=== PATIENT | female | born 1980 | race Caucasian/White ===

== ENCOUNTER → 2016-12-06 | Outpatient (REF) | payer OTHER ==
[~2016-12-06] MED LIST: BENA25CA2 PO; NORCOTAB PO; SERT50TA PO
== END ==
LOC: M SFHCPLAZ 10:00
PROVIDERS: ATTEND Family Medicine
DX: L72.0 Epidermal cyst (principal)

== ENCOUNTER → 2017-01-03 | Outpatient (REF) | payer OTHER | LOC: M LAB REF 10:22 | PROVIDERS: ATTEND Physician Assistant Medical | DX: N39.0 Urinary tract infection, site not specified (principal) ==

== ENCOUNTER → 2017-12-20 | Outpatient (REF) | payer OTHER ==
[2017-12-20 21:18] LABS: APPEARANCE, URINE CLEAR (CLEAR); BACTERIA, URINE AUTO NEGATIVE (NEGATIVE); BILIRUBIN, URINE AUTO NEGATIVE (NEGATIVE); BLOOD, URINE BLOOD NEGATIVE (NEGATIVE); COLOR, URINE YELLOW (YELLOW); GLUCOSE, URINE (UA) AUTO NEGATIVE (NEGATIVE); KETONE, URINE AUTO NEGATIVE (NEGATIVE); LEUKOCYTE ESTERASE, URINE AUTO NEGATIVE (NEGATIVE); NITRITE, URINE AUTO NEGATIVE (NEGATIVE); PROTEIN, URINE AUTO NEGATIVE (NEGATIVE); RBC, URINE AUTO 0 /HPF (0-3); SPECIFIC GRAVITY URINE AUTO 1.015 (1.002-1.035); SQUAMOUS EPITHELIAL CELL UR AU 1 /HPF (0-6); WBC, URINE AUTO 9 /HPF (0-3)
== END ==
LOC: M LAB REF 09:25
DX: R30.0 Dysuria (principal)

== ENCOUNTER 2018-08-05 17:10 | Emergency (ER) | payer OTHER ==
[~2018-08-05] VITALS: Ht 160 cm; Wt 81.8 kg
[2018-08-05] MEDS ORDERED: BACLOFEN 10 MG TAB PO ONE (18:00)
--- NOTE | 2018-08-05 18:35 | REPVR ---
EXAM: CT Head Without Contrast EXAM DATE/TIME: 08/05/2018 6:12 PM CLINICAL HISTORY: 38 years old, female; Injury or trauma; Fall; Initial encounter; Concussion / head injury; Consciousness not specified; Additional info: Fell/hit head TECHNIQUE: Axial computed tomography images of the head/brain without contrast. All CT scans at this facility use at least one of these dose optimization techniques: automated exposure control; mA and/or kV adjustment per patient size (includes targeted exams where dose is matched to clinical indication); or iterative reconstruction. COMPARISON: No relevant prior studies available. FINDINGS: Brain: Unremarkable for age. No hemorrhage. No significant white matter disease. No edema. Ventricles: Normal. No ventriculomegaly. Bones/joints: Normal. No acute fracture. Sinuses: Normal as visualized. No acute sinusitis. Mastoid air cells: Normal as visualized. No mastoid effusion. Soft tissues: Normal. IMPRESSION: No acute intracranial abnormality seen. Electronically signed by: Bozena Mclaughlin On 08/05/2018 18:35:30 PM
--- NOTE | 2018-08-05 18:39 | REPVR ---
EXAM: CT Cervical Spine Without Contrast EXAM DATE/TIME: 08/05/2018 6:12 PM CLINICAL HISTORY: 38 years old, female; Injury or trauma; Fall; Initial encounter; Concussion /head injury; Additional info: Fell/hit head TECHNIQUE: Axial computed tomography images of the cervical spine without intravenous contrast. All CT scans at this facility use at least one of these dose optimization techniques: automated exposure control; mA and/or kV adjustment per patient size (includes targeted exams where dose is matched to clinical indication); or iterative reconstruction. Coronal and sagittal reformatted images were created and reviewed. COMPARISON: No relevant prior studies available. FINDINGS: Vertebrae: Straightening of the normal cervical lordosis may be positional or due to muscle spasm. No acute fracture seen. A focal, sclerotic lesion in the C2 body may represent a bone island. Discs/Spinal canal/Neural foramina: Mild to moderate disc height loss and spondylosis with uncovertebral arthropathy at C4-5 and C5-6. No high-grade stenoses. Soft tissues: Unremarkable. Lungs: Lung apices are normal. Other findings: Retention cysts or polyps in the right maxillary sinus. The lingual tonsils are enlarged. IMPRESSION: No cervical spine fracture seen. Electronically signed by: Bozena Mclaughlin On 08/05/2018 18:39:29 PM
[2018-08-05] MEDS ORDERED: NORCOTAB PO (18:49)
[2018-08-05] MEDS ORDERED: BACL10TA2 PO (18:49)
[2018-08-05 18:59] VITALS: BP 141/68
== END 2018-08-05 19:00 | disposition home or self-care (01) ==
LOC: M ED 17:10
DX: M50.30 Other cervical disc degeneration, unspecified cervical region (principal); M47.812 Spondylosis without myelopathy or radiculopathy, cervical region; Z91.81 History of falling; Z79.899 Other long term (current) drug therapy

== ENCOUNTER → 2019-01-19 | Outpatient (CLI) | payer OTHER ==
[~2019-01-19] MED LIST changes: +BACL10TA2 PO; +HYDR-3715 PO; -NORCOTAB PO; +SERT-141 PO; -SERT50TA PO; +WELLTAB38 PO; +XANA0.25 PO
[2019-01-19 13:20] LABS: BASO % 0.5 % (0.0-1.0); EOS # 0.1 10^3/uL (0.0-0.50); HEMATOCRIT 41.6 % (36.0-47.0); LYMPH # 1.9 10^3/uL (1.5-4.5); LYMPH % 30.8 % (24.0-44.0); MEAN CORPUSCULAR HEMOGLOBIN 32.7 pg (27.0-33.0); MEAN CORPUSCULAR HGB CONC 33.7 g/dl (32.0-36.5); MEAN CORPUSCULAR VOLUME 97.2 fl (80.0-96.0); MONO # 0.4 10^3/uL (0.0-0.8); MONO % 6.4 % (0.0-5.0); NEUTROPHILS # 3.8 10^3/uL (1.8-7.7); PLATELET COUNT, AUTOMATED 229 10^3/uL (150-450); RED BLOOD COUNT 4.28 10^6/uL (4.00-5.40); WHITE BLOOD COUNT 6.2 10^3/uL (4.0-10.0)
[2019-01-19 13:21] LABS: HCG, SERUM QUALITATIVE NEGATIVE (NEGATIVE)
[2019-01-19 13:26] LABS: PARTIAL THROMBOPLASTIN TIME 28.3 SECONDS (25.4-37.6); PROTHROMBIN TIME 13.3 SECONDS (12.1-14.4)
[2019-01-19 13:45] LABS: ALBUMIN 3.6 GM/DL (3.2-5.2); ALT/SGPT 21 U/L (12-78); BILIRUBIN,TOTAL 0.9 MG/DL (0.2-1.0); BLOOD UREA NITROGEN 10 MG/DL (7-18); CALCIUM LEVEL 8.8 MG/DL (8.5-10.1); CARBON DIOXIDE LEVEL 29 MEQ/L (21-32); CHLORIDE LEVEL 104 MEQ/L (98-107); CREATININE FOR GFR 0.65 MG/DL (0.55-1.30); GLOMERULAR FILTRATION RATE > 60.0 (>60); GLUCOSE, FASTING 89 MG/DL (70-100); POTASSIUM SERUM 4.4 MEQ/L (3.5-5.1); SODIUM LEVEL 139 MEQ/L (136-145); TOTAL PROTEIN 6.7 GM/DL (6.4-8.2)
== END ==
LOC: M SMT 09:16
PROVIDERS: ATTEND Physician Assistant
DX: Z01.818 Encounter for other preprocedural examination (principal)

== ENCOUNTER 2019-01-26 06:06 | Observation (INO) | payer OTHER ==
[~2019-01-26] VITALS: Ht 160 cm; Wt 83.9 kg
[2019-01-26] MEDS ORDERED: LIDOCAINE 2% INJ 100 MG/5 ML SDV (FOR ANES.) As Ordered ONE (06:54)
[2019-01-26] MEDS ORDERED: ROCURONIUM BROMIDE 50 MG/5 ML VIAL As Ordered ONE ×2 (06:54→10:06)
[2019-01-26] MEDS ORDERED: PROPOFOL 200 MG/20 ML VIAL As Ordered ONE (06:54)
[2019-01-26] MEDS ORDERED: KETOROLAC 60 MG/2 ML VIAL (J1885) As Ordered ONE (06:57)
[2019-01-26] MEDS ORDERED: dexameTHASONE 4 MG/ML 1ML VIAL (J1100) As Ordered ONE (06:57)
[2019-01-26] MEDS ORDERED: ONDANSETRON 4MG/2ML VIAL (J2405) As Ordered ONE (06:57)
[2019-01-26] MEDS ORDERED: fentaNYL 100 MCG/2 ML INJECTION (J3010) As Ordered ONE (06:59)
[2019-01-26] MEDS ORDERED: HEPARIN SOD (PORCINE) 5000 UNITS/ML VIAL SQ ONE (07:00)
[2019-01-26] MEDS ORDERED: ceFAZolin SOD 1 GM in D5W MINI-BAG PLUS 50 ML IV ONE (07:00)
[2019-01-26] MEDS ORDERED: MIDAZOLAM INJ 2 MG/2 ML VIAL (J2250) As Ordered ONE (07:00)
[2019-01-26] MEDS ORDERED: LR 1,000 ML IV SCH ×2 (07:00→11:30)
[2019-01-26] MEDS ORDERED: BUPIVACAINE LIPOSOME/PF 1.3% 20ML VIAL (13.3MG/ML)(EXPAREL)(C9290 PER1MG) As Ordered ONE (07:15)
[2019-01-26] MEDS ORDERED: BACITRACIN PWD 50,000 UNITS VIAL As Ordered ONE (07:16)
[2019-01-26] MEDS ORDERED: HYDROmorphone HCL 2 MG/ML 1ML VIAL (J1170) As Ordered ONE (07:47)
[2019-01-26] MEDS ORDERED: METOCLOPRAMIDE INJ 10MG/2ML VIAL (J2765) As Ordered ONE (08:08)
[2019-01-26] MEDS ORDERED: FLUCONAZOLE 200 MG in APPROPRIATE DILUENT 1 EA IV ONE (08:30)
[2019-01-26] MEDS ORDERED: SUGAMMADEX SODIUM 500 MG/5 ML VIAL (BRIDION) As Ordered ONE (08:55)
--- NOTE | 2019-01-26 11:19 | POST-OPPD ---
Postoperative Procedure Note Date Of Procedure: Jan 26, 2019 PREOPERATIVE DIAGNOSIS: Panniculitis POSTOPERATIVE DIAGNOSIS: same FINDINGS: Large pannus PROCEDURE: Extended panniculectomy with inferior rectus muscle plication. SURGEON: Dr Pelayo ANESTHESIA: General SPECIMENS: Pannus ESTIMATED BLOOD LOSS: 150 cc REPLACED: none DRAINS: 10 mm DOMINGO drains x 2 COMPLICATIONS: none POSTOPERATIVE CONDITION: stable Dict: [id number] JILLIAN PELAYO DO Jan 26, 2019 11:19
[2019-01-26] MEDS ORDERED: ONDANSETRON 4MG/2ML VIAL (J2405) IV PRN (11:30)
[2019-01-26] MEDS ORDERED: METOCLOPRAMIDE INJ 10MG/2ML VIAL (J2765) IV PRN (11:30)
[2019-01-26] MEDS ORDERED: fentaNYL 100 MCG/2 ML INJECTION (J3010) IV PRN (11:30)
[2019-01-26] MEDS: PERCOCET 5MG/325MG TAB PO PRN ×2 (11:35→12:10)
[2019-01-26] MEDS: LR 1,000 ML IV SCH (15:00)
[2019-01-26 15:01] VITALS: BP 116/65
[2019-01-26] MEDS: ceFAZolin SOD 1 GM in D5W MINI-BAG PLUS 50 ML IV SCH ×2 (16:00→16:45)
[2019-01-26 16:16] VITALS: BP 112/61
[2019-01-26] MEDS: NORCO, ANEXSIA 5/325MG TABLET (HYDROcodone/ACETAMINOPHEN) PO PRN (16:44)
[2019-01-26] MEDS: MORPHINE 4 MG/ML 1ML VIAL/SYRINGE (J2270) IV PRN (19:25)
[2019-01-26 22:00] VITALS: BP 103/59
--- NOTE | 2019-01-26 23:33 | RO ---
DATE OF PROCEDURE: 01/26/2019 PREOPERATIVE DIAGNOSIS: Panniculitis. POSTOPERATIVE DIAGNOSIS: Panniculitis. PROCEDURE: Extended panniculectomy with inferior rectus muscle plication. ATTENDING SURGEON: Keren Carroll DO ANESTHESIA: General. BLOOD LOSS: 150 mL. Two 10 mm Manolo-Angeles drains left in place. DESCRIPTION OF PROCEDURE: This is a 38-year-old female who had gastric banding, who lost more than 80 pounds. She has significant excess of the pannus tissue, which gets frequent infections. As a matter of fact, today she has still residual infection with a yeast infection in the fold. Patient is a good candidate for extended panniculectomy, and she is scheduled to have one done. All the risks and benefits and alternatives discussed with the patient, and she is ready to proceed. On the day of surgery, she was marked in the upright position in the preoperative holding area and, like I said, mild irritation and intertrigo into the lower fold is noted. No open skin. Then, patient was brought into the operating room and placed in supine position. Preoperative antibiotics were given. Sequentials were placed on the lower calves. 5000 heparin was given to the patient subcu, and then general anesthesia was induced. The Rivera was introduced into the bladder without any difficulties, and then she was prepped and draped in the usual sterile fashion. We marked our incision at 7 cm above the vaginal crease. The lower abdominal incision was carried out using #10 blade, and then sharp dissection was carried out using electrocautery until the rectus fascia was identified. The flap was then raised superiorly until the umbilical stalk was encountered, and then a rhomboid incision was made around the umbilicus. We continued raising the flaps superiorly. There was a port and wires and tubing from the band that were identified in the right upper quadrant and extending medially, which will prevent full plication and the superior rectus muscle. That part of rectus has minimal laxity as of note. Lower abdominal part has moderate laxity of rectus muscle, so that area was plicated four fingerbreadths with interrupted #0 Vicryl sutures and #1 looped PDS. Then, patient was placed in reflex position, and excess skin over the pannus was measured and resected, totaling 2523 grams. Hemostasis obtained using electrocautery, and then we started our closure along the inferior flap using interrupted #0 Vicryl sutures and #3-0 Monocryl sutures and #3-0 V-Loc suture. 10 mm Manolo-Angeles drains were placed through the lateral portion of horizontal incision. The rhomboid opening for the umbilical stalk was made using #10 blade, and then the umbilicus was brought into view. It was in good viable condition, and then it was sutured in place with layers with interrupted #3-0 Monocryl and #5-0 plain sutures. Exparel 15 cc used for pain control, used intramuscular into rectus muscle and incision. Then, Prineo dressing was applied for the inferior incision. For the umbilical incision, it was Xeroform and a bulky dressing, and then compressive garment was placed. Patient was transferred to recovery room in stable condition. MELONIE
[2019-01-27] MEDS: ceFAZolin SOD 1 GM in D5W MINI-BAG PLUS 50 ML IV SCH ×2 (00:02→08:55)
[2019-01-27] MEDS: MORPHINE 4 MG/ML 1ML VIAL/SYRINGE (J2270) IV PRN (00:07)
[2019-01-27 02:00] VITALS: BP 114/49
[2019-01-27] MEDS: LR 1,000 ML IV SCH (05:01)
[2019-01-27 06:00] VITALS: BP 111/49
--- NOTE | 2019-01-27 08:52 | IPNPDOC ---
Subjective General Date/Time Seen The patient was seen on 01/27/19 at 08:15. Subject Chief Complaint/History The patient is a 38-year-old female admitted with a reason for visit of Panniculitis. S/p extended panniculectomy POD 1. Doing well. Pain mild, controlled. Ambulating, urinating. Tolerating diet. Current Medications Current Medications Current Medications Acetaminophen/ Hydrocodone Bitart ([place], Anexsia 5/325) 1 tab Q4HP PRN PO MILD/MODERATE PAIN (PS 1-7) Last administered on 01/26/19at 16:44; Start 01/26/19 at 11:30 Cefazolin Sodium 1 gm/Dextrose 50 ml @ 100 mls/hr Q8H IV Last administered on 01/27/19at 00:02; Start 01/26/19 at 16:00 Fentanyl Citrate (Sublimaze) 25 mcg Q5MP PRN IV MODERATE PAIN (PS 4-7); Start 01/26/19 at 11:30; Stop 01/26/19 at 12:30; Status DC Fluconazole 200 mg/IV Miscellaneous Supplies 100 ml @ 100 mls/hr DAILY IV ; Start 01/27/19 at 09:00 Lactated Ringer's 1,000 ml @ 50 mls/hr Q20H IV Last administered on 01/26/19at 07:02; Start 01/26/19 at 07:00; Stop 01/26/19 at 11:19; Status DC Lactated Ringer's 1,000 ml @ 75 mls/hr [id number] IV Last administered on 01/27/19at 05:01; Start 01/26/19 at 11:30 Lactated Ringer's 1,000 ml @ 100 mls/hr Q10H IV ; Start 01/26/19 at 11:30; Stop 01/26/19 at 12:30; Status DC Metoclopramide HCl (REGLAN INJection) 10 mg Q6HP PRN IV NAUSEA OR VOMITING; Start 01/26/19 at 11:30; Stop 01/26/19 at 12:30; Status DC Morphine Sulfate (Morphine Sulfate Inj) 4 mg Q4HP PRN IV SEVERE PAIN (PS 8-10) Last administered on 01/27/19at 00:07; Start 01/26/19 at 11:30 Ondansetron HCl (ZOFRAN INJection) 4 mg Q4HP PRN IV NAUSEA OR VOMITING; Start 01/26/19 at 11:30; Stop 01/26/19 at 12:30; Status DC Oxycodone/ Acetaminophen (Percocet 5mg/ 325mg Tablet) 1 tab ASDIRECTED PRN PO MILD/MODERATE PAIN (PS 1-7) Last administered on 01/26/19at 12:10; Start 01/26/19 at 11:30; Stop 01/26/19 at 12:15; Status DC Allergies Coded Allergies: adhesive (Verified Allergy, Intermediate, rash, 01/15/19) Uncoded Allergies: STERISTRIPS (Allergy, Intermediate, rash, 01/15/19) Objective Physical Examination Examination GENERAL APPEARANCE:Patient seen, laying in bed, awake, alert, and oriented. Comfortable, in no acute distress. SKIN: Warm and moist. Abdominal flaps viable, umbilicus viable. No ecchymosis. Incisions intact. DOMINGO drains with minimal output. HEENT: Normocephalic, atraumatic. [place] palpebral conjunctiva, anicteric sclerae. Lips and mucosa appear moist. NECK: Supple, no thyromegaly. No obvious jugular venous distention. LUNGS: Clear to auscultation bilaterally. No wheezing appreciated. HEART: No chest wall abnormalities. Regular rate and rhythm with no murmurs appreciated. ABDOMEN: Abdomen is Soft NT/ND. Vital Signs Vital Signs Date Time Temp Pulse Resp B/P (MAP) Pulse Ox O2 Delivery O2 Flow Rate FiO2 01/27/19 06:00 98.5 66 18 111/49 (69) 99 01/26/19 10:57 10 I&Os I&O- Last 24 Hours up to 6 AM 01/27/19 06:00 Intake Total 4355 ml Output Total 730 ml Balance 3625 ml Impression S/p extended panniculectomy Doing well Pain controlled. Stable for discharge later today. Continue with DOMINGO monitoring at home. Keep binder on. Instructions given F/up plastic surgery Friday. Plan / VTE VTE Prophylaxis Ordered?: Yes JILLIAN PELAYO DO Jan 27, 2019 08:52
[2019-01-27] MEDS: NORCO, ANEXSIA 5/325MG TABLET (HYDROcodone/ACETAMINOPHEN) PO PRN (08:56)
[2019-01-27] MEDS ORDERED: HYDR-4571 PO (08:59)
[2019-01-27] MEDS ORDERED: FLUCONAZOLE 200 MG in APPROPRIATE DILUENT 1 EA IV SCH (09:00)
[2019-01-27 10:00] VITALS: BP 109/70
== END 2019-01-27 13:15 | disposition home or self-care (01) ==
LOC: M SDC 06:06 → M MS5PR 14:40
PROVIDERS: ADMIT Plastic Surgery Surgery of the Hand; ATTEND Plastic Surgery Surgery of the Hand
DX: M79.3 Panniculitis, unspecified (principal); Z98.84 Bariatric surgery status; E28.2 Polycystic ovarian syndrome; J30.9 Allergic rhinitis, unspecified; D64.9 Anemia, unspecified; F41.1 Generalized anxiety disorder; B37.89 Other sites of candidiasis; G43.909 Migraine, unspecified, not intractable, without status migrainosus; Z79.899 Other long term (current) drug therapy; Z91.048 Other nonmedicinal substance allergy status
CPT/HCPCS: 15830; 15847; 88302; 96365; 96366; 96368; 96375; 96376; C9290; J0690; J1100; J1170; J1885; J2250; J2270; J2405; J2765; J3010

== ENCOUNTER 2019-02-03 11:37 | Emergency (ER) | payer OTHER ==
[~2019-02-03] VITALS: Ht 160 cm; Wt 84.1 kg
[~2019-02-03 11:37] MED LIST changes: +HYDR-4571 PO
[2019-02-03 14:15] LABS: BASO % 0.6 % (0.0-1.0); EOS # 0.2 10^3/uL (0.0-0.50); EOS % 2.3 % (0.0-3.0); HEMATOCRIT 39.7 % (36.0-47.0); HEMOGLOBIN 13.6 g/dl (12.0-15.5); LYMPH # 1.9 10^3/uL (1.5-4.5); LYMPH % 25.9 % (24.0-44.0); MEAN CORPUSCULAR HEMOGLOBIN 33.3 pg (27.0-33.0); MEAN CORPUSCULAR HGB CONC 34.3 g/dl (32.0-36.5); MEAN CORPUSCULAR VOLUME 97.1 fl (80.0-96.0); MONO # 0.5 10^3/uL (0.0-0.8); MONO % 6.5 % (0.0-5.0); NEUTROPHILS # 4.7 10^3/uL (1.8-7.7); NEUTROPHILS % 64.1 % (36.0-66.0); PLATELET COUNT, AUTOMATED 326 10^3/uL (150-450); RED BLOOD COUNT 4.09 10^6/uL (4.00-5.40); WHITE BLOOD COUNT 7.3 10^3/uL (4.0-10.0)
[2019-02-03 14:25] LABS: INR 0.98; PARTIAL THROMBOPLASTIN TIME 28.9 SECONDS (25.0-38.4); PROTHROMBIN TIME 12.7 SECONDS (11.8-14.0)
[2019-02-03 14:28] LABS: D-DIMER QUANT 594.33 ng/ml (<500)
[2019-02-03 14:48] LABS: ALBUMIN 3.7 GM/DL (3.2-5.2); ALT/SGPT 27 U/L (12-78); BILIRUBIN,TOTAL 0.6 MG/DL (0.2-1.0); BLOOD UREA NITROGEN 16 MG/DL (7-18); CALCIUM LEVEL 9.2 MG/DL (8.5-10.1); CARBON DIOXIDE LEVEL 29 MEQ/L (21-32); CHLORIDE LEVEL 103 MEQ/L (98-107); CREATININE FOR GFR 0.71 MG/DL (0.55-1.30); GLOMERULAR FILTRATION RATE > 60.0 (>60); GLUCOSE, FASTING 81 MG/DL (70-100); POTASSIUM SERUM 4.9 MEQ/L (3.5-5.1); SODIUM LEVEL 139 MEQ/L (136-145); TOTAL PROTEIN 7.4 GM/DL (6.4-8.2)
[2019-02-03] MEDS ORDERED: ISOVUE-370 76% 100ML VIAL (Q9967) As Ordered ONE (15:26)
--- NOTE | 2019-02-03 16:12 | REP ---
Clinical: Acute chest pain and shortness of breath . Technique: Axial contrast enhanced images from the thoracic inlet to the upper abdomen using 100 ml Isovue 370 intravenous contrast material with coronal and sagittal re-formations. Findings: Satisfactory enhancement of the pulmonary vasculature is achieved and no filling defects are identified to suggest pulmonary embolus. Thoracic aorta is normal caliber without aneurysm or dissection. Heart and pericardium are normal. Bilateral lung vera are well aerated and clear without acute pulmonary parenchymal consolidation or atelectasis. No nodule or mass lesion. No pleural effusion/reaction. No pneumothorax. No adenopathy. Impression: No evidence for pulmonary embolus. No acute pleuroparenchymal or mediastinal process. Electronically Signed by Reagan Zhang MD 02/03/2019 04:03 P
[2019-02-03 16:39] VITALS: BP 118/80
== END 2019-02-03 16:38 | disposition home or self-care (01) ==
LOC: M ED 11:37
DX: R06.02 Shortness of breath (principal); Z98.890 Other specified postprocedural states; F41.9 Anxiety disorder, unspecified; Z91.048 Other nonmedicinal substance allergy status
CPT/HCPCS: 36415; 71275; 80053; 85025; 85379; 85610; 85730; 99284; Q9967

== ENCOUNTER → 2019-08-06 | Outpatient (REF) | payer OTHER | LOC: M LAB REF 11:24 | PROVIDERS: ATTEND Physician Assistant Medical | DX: R30.0 Dysuria (principal) ==